=== PATIENT | female | born 1995 | race Caucasian/White ===

== ENCOUNTER 2017-11-26 15:31 | Emergency (ER) | payer OTHER, BC ==
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
[2017-11-26 16:12] LABS: Appearance HAZY (CLEAR); Bilirubin NEGATIVE (NEGATIVE); Blood 250 Ery/ul (0-5); Glucose NEGATIVE (NEGATIVE); Ketones NEGATIVE (NEGATIVE); Leukocyte Esterase TRACE (NEGATIVE); Nitrite NEGATIVE (NEGATIVE); Protein,Urine Dip NEGATIVE (Negative); Urobilinogen NORMAL mg/dL (0-1)
[2017-11-26 16:32] LABS: BASOPHIL % 0.2 % (0.0-0.4); Basophil (Absolute #) 0.02 (0-0.4); Eosinophil % 0.8 % (0.00-5.0); Eosinophil (Absolute #) 0.09 (0-0.5); Granulocyte Absolute (ANC) 7.75 (1.4-6.9); Granulocytes % 65.9 % (36.0-66.0); Hematocrit 45.7 % (35-47); Hemoglobin 15.4 gm/dl (12.0-16.0); Lymphocytes % 26.4 % (24.0-44.0); Mean Corpuscular Hemoglobin 30.7 pg (26-32); Mean Corpuscular Hgb Concent. 33.7 g/dl (32-36); Mean Platelet Volume 13.2 fl (6-9.5); Monocyte (Absolute #) 0.79 (0.0-1.3); Monocytes % 6.7 % (0.0-12.0); Platelet Count 169 K/mm3 (150-450); Red Blood Count 5.02 M/mm3 (4.1-5.4); Red Cell Distribution Width 12.7 % (11.5-14.0); White Blood Count 11.8 K/mm3 (4.0-10.5)
[2017-11-26 16:48] LABS: ALBUMIN 4.2 g/dL (3.5-5.0); ALKALINE PHOSPHATASE 84 U/L (38-126); AMYLASE 72 U/L (30-110); ANION GAP 14.7 MEQ/L (5-15); BLOOD UREA NITROGEN 14 mg/dL (7-17); CHLORIDE 105 mmol/L (98-107); Calcium 9.5 mg/dL (8.4-10.2); Carbon Dioxide 24 mmol/L (22-30); Creatinine 1 0.62 mg/dL (0.52-1.04); Glucose 92 mg/dL (74-106); LIPASE 43 U/L (23-300); Potassium 3.8 mmol/L (3.5-5.1); SGOT/AST 20 U/L (14-36); SGPT/ALT 22 U/L (0-35); SODIUM 140 mmol/L (137-145); Total Protein 7.4 g/dL (6.3-8.2)
[2017-11-26 16:54] LABS: Mucus MODERATE /HPF (NEGATIVE)
[2017-11-26 16:55] LABS: Bacteria MODERATE /HPF (NEGATIVE); Epithelial Cells MODERATE /HPF (FEW)
[2017-11-26] MEDS ORDERED: ROCEPHIN 1 Gm-D5w 50 ml Bag** 1 G/50 ML IVPB IV STA (17:23)
[2017-11-26 17:26] VITALS: O2SAT 99
[2017-11-26] MEDS ORDERED: ROCEPHIN 1 Gm-D5w 50 ml Bag** 1 G/50 ML IVPB IV ONE (17:30)
[2017-11-26 17:41] VITALS: BP 118/60; PULSE 90
== END 2017-11-26 17:40 | disposition home or self-care (01) ==
LOC: ED 15:31
DX: N39.0 Urinary tract infection, site not specified (principal)
CPT/HCPCS: 36000; 36415; 80053; 81000; 82150; 83690; 83735; 84703; 85025; 87086; 96365; 99283; 99284; J0696

== ENCOUNTER 2018-10-16 01:02 | Emergency (ER) | payer MEDICAID, OTHER ==
[2018-10-16 01:31] LABS: BASOPHIL % 0.1 % (0.0-0.4); Basophil (Absolute #) 0.02 (0-0.4); Eosinophil % 0.6 % (0.00-5.0); Eosinophil (Absolute #) 0.11 (0-0.5); Granulocytes % 70.4 % (36.0-66.0); Hematocrit 44.6 % (35-47); Hemoglobin 14.9 gm/dl (12.0-16.0); Lymphocyte (Absolute #) 3.76 (1.0-4.6); Lymphocytes % 21.9 % (24.0-44.0); Mean Cell Volume 93.7 fl (78-100); Mean Corpuscular Hemoglobin 31.3 pg (26-32); Mean Corpuscular Hgb Concent. 33.4 g/dl (32-36); Mean Platelet Volume 13.1 fl (6-9.5); Platelet Count 169 K/mm3 (150-450); Red Blood Count 4.76 M/mm3 (4.1-5.4); Red Cell Distribution Width 12.8 % (11.5-14.0); White Blood Count 17.2 K/mm3 (4.0-10.5)
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
[2018-10-16 01:47] LABS: Amphetamine,Urine NEGATIVE (NEGATIVE); Barbiturate,Urine NEGATIVE (NEGATIVE); Benzodiazepine,Urine NEGATIVE (NEGATIVE); Cocaine,Urine NEGATIVE (NEGATIVE); Methadone,Urine NEGATIVE (NEGATIVE); Opiate,Urine NEGATIVE (NEGATIVE); PCP,Urine NEGATIVE (NEGATIVE); THC,Urine NEGATIVE (NEGATIVE)
[2018-10-16 01:48] LABS: ALBUMIN 4.7 g/dL (3.5-5.0); ALKALINE PHOSPHATASE 96 U/L (38-126); ANION GAP 15.4 MEQ/L (5-15); BLOOD UREA NITROGEN 17 mg/dL (7-17); CHLORIDE 106 mmol/L (98-107); Calcium 9.4 mg/dL (8.4-10.2); Carbon Dioxide 23 mmol/L (22-30); Creatinine 1 0.62 mg/dL (0.52-1.04); Glucose 92 mg/dL (74-106); SGOT/AST 22 U/L (14-36); SGPT/ALT 22 U/L (0-35); SODIUM 141 mmol/L (137-145)
[2018-10-16 01:50] LABS: ACETAMINOPHEN < 10 ug/ml (10-30); ETHYL ALCOHOL < 10 mg/dL (0-10); SALICYLATE < 1.0 mg/dL (2-20)
[2018-10-16 01:52] LABS: Appearance SLIGHTLY CLOUDY (CLEAR); Bilirubin NEGATIVE (NEGATIVE); Blood LARGE Ery/ul (0-5); Epithelial Cells FEW /HPF (FEW); Glucose NEGATIVE (NEGATIVE); Ketones NEGATIVE (NEGATIVE); Leukocyte Esterase NEGATIVE (NEGATIVE); Mucus SLIGHT /HPF (NEGATIVE); Nitrite NEGATIVE (NEGATIVE); Protein,Urine Dip 30 (Negative); Specific Gravity 1.025 (1.005-1.025); Urobilinogen 2 mg/dL (0-1); WBC 0-2 /HPF (0-5)
[2018-10-16] MEDS ORDERED: Nicoderm CQ 21 MG TOP ONE (06:29)
[2018-10-16 10:11] VITALS: BP 124/80; PULSE 80
[2018-10-16 19:11] VITALS: O2SAT 97
== END 2018-10-16 10:36 ==
LOC: EEVIPCON 01:02 → ED 01:02
DX: R45.851 Suicidal ideations (principal)
CPT/HCPCS: 36415; 80053; 80307; 81001; 81025; 85025; 90791; 93005; 99285; G0481; Q3014; A9270-GY; G0480

== ENCOUNTER 2018-12-09 22:37 | Emergency (ER) | payer SELFPAY ==
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
[2018-12-10 01:03] VITALS: BP 98/52; PULSE 85; O2SAT 95
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
== END 2018-12-10 01:07 | disposition home or self-care (01) ==
LOC: ED 22:37
DX: S09.90XA Unspecified injury of head, initial encounter (principal); V43.52XA Car driver injured in collision with other type car in traffic accident, initial encounter
CPT/HCPCS: 70450; 99284

== ENCOUNTER → 2019-10-26 | Emergency (ER) | payer OTHER ==
--- NOTE | 2019-10-26 23:34 | ERPHSYRPT ---
- History of Present Illness Time Seen by Provider: 10/26/19 23:34 Allergies/Adverse Reactions: amoxicillin [From Augmentin] Allergy (Verified 12/09/18 23:28) clavulanic acid [From Augmentin] Allergy (Verified 12/09/18 23:28) Home Medications: No Reportable Medications [No Reported Medications] 12/09/18 [History] Hx Tetanus, Diphtheria Vaccination/Date Given: Yes Hx Influenza Vaccination/Date Given: Yes Hx Pneumococcal Vaccination/Date Given: No - Past Medical History Pertinent Past Medical History: No Neurological History: No Pertinent History ENT History: No Pertinent History Cardiac History: No Pertinent History Respiratory History: No Pertinent History Endocrine Medical History: No Pertinent History Musculoskeletal History: No Pertinent History GI Medical History: No Pertinent History History: No Pertinent History Psycho-Social History: No Pertinent History Female Reproductive Disorders: No Pertinent History - Past Surgical History Past Surgical History: No - Social History Smoking Status: Current every day smoker How long have you smoked: 5 years Exposure to second hand smoke: Yes Drug Use: none Patient Lives Alone: No - Departure Referrals: DEBBIE MCBRIDE DO [Primary Care Provider] -
== END ==
LOC: ED 22:58
DX: Z53.9 Procedure and treatment not carried out, unspecified reason (principal)
CPT/HCPCS: 99281

== ENCOUNTER 2019-10-27 11:51 | Emergency (ER) | payer OTHER ==
[2019-10-27 12:22] VITALS: O2SAT 98
--- NOTE | 2019-10-27 12:37 | ERPHSYRPT ---
- History of Present Illness Time Seen by Provider: 10/27/19 12:36 Source: patient Exam Limitations: no limitations Patient Subjective Stated Complaint: Vaginal bleeding during pregancy Triage Nursing Assessment: Patient ambulated back to ED and transferred self to bed. Patient A+O x3. Patient's skin pink, warm and dry. Patient complains of vaginal bleeding that started last night. Patient denies pain or discomfort. Patient's abdomen soft and round with BS X 4. Patient approx 8 weeks . Physician History: Vaginal bleeding for 1 day. patient is 8 weeks Timing/Duration: today Activites at Onset: none Pain Radiation: none Severity of Pain-Max: none Severity of Pain-Current: none Prior abdominal problems: none Sexual intercourse history: non-contributory Modifying Factors: Improves With: nothing Associated Symptoms: denies symptoms Allergies/Adverse Reactions: amoxicillin [From Augmentin] Allergy (Verified 10/27/19 12:10) clavulanic acid [From Augmentin] Allergy (Verified 10/27/19 12:10) Home Medications: Metformin HCl 500 mg [Glucophage 500 MG] 1 tab PO DAILY 10/27/19 [History] Hx Tetanus, Diphtheria Vaccination/Date Given: Yes Hx Influenza Vaccination/Date Given: No Hx Pneumococcal Vaccination/Date Given: No - Review of Systems Constitutional: No Fever, No Chills Eyes: No Symptoms Ears, Nose, & Throat: No Symptoms Respiratory: No Cough, No Dyspnea Cardiac: No Chest Pain, No Edema, No Syncope Abdominal/Gastrointestinal: No Abdominal Pain, No Nausea, No Vomiting, No Diarrhea Genitourinary Symptoms: No Dysuria Musculoskeletal: No Back Pain, No Neck Pain Skin: No Rash Neurological: No Dizziness, No Focal Weakness, No Sensory Changes Psychological: No Symptoms Endocrine: No Symptoms All Other Systems: Reviewed and Negative - Past Medical History Pertinent Past Medical History: No Neurological History: No Pertinent History ENT History: No Pertinent History Cardiac History: No Pertinent History Respiratory History: No Pertinent History Endocrine Medical History: No Pertinent History Musculoskeletal History: No Pertinent History GI Medical History: No Pertinent History History: No Pertinent History Psycho-Social History: No Pertinent History Female Reproductive Disorders: No Pertinent History - Past Surgical History Past Surgical History: No Neuro Surgical History: No Pertinent History Cardiac: No Pertinent History Respiratory: No Pertinent History Gastrointestinal: No Pertinent History Genitourinary: No Pertinent History Musculoskeletal: No Pertinent History Female Surgical History: No Pertinent History - Social History Smoking Status: Current every day smoker How long have you smoked: years Exposure to second hand smoke: Yes Drug Use: none Patient Lives Alone: No - Female History Hx Last Menstrual Period: 09/01/19 Hx Now: Yes Expected Date of Delivery: 06/07/20 - Nursing Vital Signs Nursing Vital Signs: Initial Vital Signs Temperature 98.0 F 10/27/19 12:12 Pulse Rate 109 H 10/27/19 12:12 Respiratory Rate 18 10/27/19 12:12 Blood Pressure 121/81 10/27/19 12:12 O2 Sat by Pulse Oximetry 98 10/27/19 12:12 Pain Scale Pain Intensity 0 - Physical Exam General Appearance: no apparent distress, alert Eye Exam: PERRL/EOMI, eyes nml inspection Ears, Nose, Throat Exam: normal ENT inspection, TMs normal, pharynx normal, moist mucous membranes Neck Exam: normal inspection, non-tender, supple, full range of motion Respiratory Exam: normal breath sounds, lungs clear, No respiratory distress Cardiovascular Exam: regular rate/rhythm, normal heart sounds, normal peripheral pulses Gastrointestinal/Abdomen Exam: soft, No tenderness, No mass Pelvic Exam: not done Back Exam: normal inspection, normal range of motion, No CVA tenderness, No vertebral tenderness Extremity Exam: normal inspection, normal range of motion, pelvis stable Neurologic Exam: alert, oriented x 3, cooperative, clubhouse attendant II-XII nml as tested, normal mood/affect, sensation nml, No motor deficits Skin Exam: normal color, warm, dry Lymphatic Exam: No adenopathy SpO2: 98 Ordered Tests: Active Orders 24 hr Category Date Time Status CBC W DIFF Stat Lab 10/27/19 12:36 Completed CMP Stat Lab 10/27/19 12:36 Completed HCG QUALITATIVE,SERUM Stat Lab 10/27/19 12:36 Completed HCG, Quantitative (Inhouse) Stat Lab 10/27/19 12:36 Received UA W/RFX UR CULTURE Stat Lab 10/27/19 12:32 Completed Lab/Rad Data: Laboratory Result Diagrams 10/27/19 12:36 10/27/19 12:36 Laboratory Results 10/27/19 10/27/19 10/27/19 Range/Units 12:36 12:36 12:36 WBC 11.8 H (4.0-10.5) K/mm3 RBC 4.68 (4.1-5.4) M/mm3 Hgb 14.7 (12.0-16.0) gm/dl Hct 44.4 (35-47) % MCV 94.9 (78-100) fl MCH 31.4 (26-32) pg MCHC 33.1 (32-36) g/dl RDW 12.9 (11.5-14.0) % Plt Count 167 (150-450) K/mm3 MPV 12.8 H (7.5-11.0) fl Gran % 64.9 (36.0-66.0) % Eos # (Auto) 0.11 (0-0.5) Absolute Lymphs (auto) 3.06 (1.0-4.6) Absolute Monos (auto) 0.94 (0.0-1.3) Lymphocytes % 25.9 (24.0-44.0) % Monocytes % 8.0 (0.0-12.0) % Eosinophils % 0.9 (0.00-5.0) % Basophils % 0.3 (0.0-0.4) % Absolute Granulocytes 7.68 H (1.4-6.9) Basophils # 0.03 (0-0.4) Sodium 139 (137-145) mmol/L Potassium 4.0 (3.5-5.1) mmol/L Chloride 105 (98-107) mmol/L Carbon Dioxide 27 (22-30) mmol/L Anion Gap 11.8 (5-15) MEQ/L BUN 10 (7-17) mg/dL Creatinine 0.52 (0.52-1.04) mg/dL Estimated GFR > 60.0 ML/MIN Glucose 93 (74-106) mg/dL Calcium 9.4 (8.4-10.2) mg/dL Total Bilirubin 0.40 (0.2-1.3) mg/dL AST 24 (14-36) U/L ALT 23 (0-35) U/L Alkaline Phosphatase 66 (38-126) U/L Serum Total Protein 7.5 (6.3-8.2) g/dL Albumin 4.2 (3.5-5.0) g/dL Serum , Qual POSITIVE (Negative) Urine Color (YELLOW) Urine Appearance (CLEAR) Urine pH (5-6) Ur Specific [place] (1.005-1.025) Urine Protein (Negative) Urine Ketones (NEGATIVE) Urine Blood (0-5) Leonel/ul Urine Nitrite (NEGATIVE) Urine Bilirubin (NEGATIVE) Urine Urobilinogen (0-1) mg/dL Ur Leukocyte Esterase (NEGATIVE) Urine WBC (Auto) (0-5) /HPF Urine RBC (Auto) (0-2) /HPF U Epithel Cells (Auto) (FEW) /HPF Urine Bacteria (Auto) (NEGATIVE) /HPF Unidentified Crystals (NEGATIVE) /HPF Urine Mucus (Auto) (NEGATIVE) /HPF Urine Culture Reflexed (NO) Urine Glucose (NEGATIVE) mg/dL 10/27/19 Range/Units 12:32 WBC (4.0-10.5) K/mm3 RBC (4.1-5.4) M/mm3 Hgb (12.0-16.0) gm/dl Hct (35-47) % MCV (78-100) fl MCH (26-32) pg MCHC (32-36) g/dl RDW (11.5-14.0) % Plt Count (150-450) K/mm3 MPV (7.5-11.0) fl Gran % (36.0-66.0) % Eos # (Auto) (0-0.5) Absolute Lymphs (auto) (1.0-4.6) Absolute Monos (auto) (0.0-1.3) Lymphocytes % (24.0-44.0) % Monocytes % (0.0-12.0) % Eosinophils % (0.00-5.0) % Basophils % (0.0-0.4) % Absolute Granulocytes (1.4-6.9) Basophils # (0-0.4) Sodium (137-145) mmol/L Potassium (3.5-5.1) mmol/L Chloride (98-107) mmol/L Carbon Dioxide (22-30) mmol/L Anion Gap (5-15) MEQ/L BUN (7-17) mg/dL Creatinine (0.52-1.04) mg/dL Estimated GFR ML/MIN Glucose (74-106) mg/dL Calcium (8.4-10.2) mg/dL Total Bilirubin (0.2-1.3) mg/dL AST (14-36) U/L ALT (0-35) U/L Alkaline Phosphatase (38-126) U/L Serum Total Protein (6.3-8.2) g/dL Albumin (3.5-5.0) g/dL Serum , Qual (Negative) Urine Color YELLOW (YELLOW) Urine Appearance SLIGHTLY CLOUDY (CLEAR) Urine pH 7.0 (5-6) Ur Specific [place] 1.019 (1.005-1.025) Urine Protein NEGATIVE (Negative) Urine Ketones NEGATIVE (NEGATIVE) Urine Blood MODERATE (0-5) Leonel/ul Urine Nitrite NEGATIVE (NEGATIVE) Urine Bilirubin NEGATIVE (NEGATIVE) Urine Urobilinogen NEGATIVE (0-1) mg/dL Ur Leukocyte Esterase NEGATIVE (NEGATIVE) Urine WBC (Auto) 0-2 (0-5) /HPF Urine RBC (Auto) 3-5 (0-2) /HPF U Epithel Cells (Auto) RARE (FEW) /HPF Urine Bacteria (Auto) NONE (NEGATIVE) /HPF Unidentified Crystals 2-5 (NEGATIVE) /HPF Urine Mucus (Auto) SLIGHT (NEGATIVE) /HPF Urine Culture Reflexed NO (NO) Urine Glucose NEGATIVE (NEGATIVE) mg/dL - Progress Progress: improved Air Movement: good Blood Culture(s) Obtained: No Antibiotics given: No Counseled pt/family regarding: lab results, diagnosis, need for follow-up - Departure Departure Disposition: Home Clinical Impression: Vaginal bleeding affecting early Condition: Stable Critical Care Time: No Referrals: DEBBIE MCBRIDE DO [Primary Care Provider] - Instructions: Bleeding With (DC), How to Adapt to Physical Changes During Additional Instructions: VELASCOCHI LEONARD was seen on 10/27/19 n the Emergency Room. At that time you were treated for an emergent condition, during your visit Laboratory, Radiology and/or other procedures may have been ordered. It is very important that you follow-up with your Primary Care Physician DEBBIE MCBRIDE DO within the next 24- 48 hours to review your Emergency Room visit and the final results of testing that was ordered. Some test results such as Urine Cultures, Blood Cultures, and other cultures if ordered will not be finalized for 24-48 hours. If you do not have a Primary Care Provider please call the medical records department at [phone] ext [phone] to obtain a copy of your results or you may sign into our patient portal to obtain these results by visiting us @ [email or web address] and completing the following steps: 1. Click on the Patient Portal link 2. Click the Patient Self Enrollment Link to complete the enrollment form and entering your 3. Once the enrollment form is completed you will receive an email with a temporary ID and password at the email address you provided. 4. Next choose a user name and password. Your user name must be at least 4 characters long and your password must be at least 4 characters long. 5. Choose a security question from the list and provide your answer to the question. If you already have signed into the Health Portal you may access your Health Care Information 07/03 by the following steps: 1. Login to our website @ [email or web address] 2. Enter your original user name and password. FAQS The [facility] Portal is an online tool that contains your Lab Results, Radiology Reports, Visit History, Discharge Instructions and Health Summary Lab and Radiology Results will not be available for 72 hours on the portal. The Portal is a secure site, passwords are encryted and URLs are re-written so they cannot be copied and pasted. You and authorized family members are the only ones who can access your Portal. Also there is a timeout feature that protects your information if you leave the Portal page open. If you have technical difficulty please use the Contact Us link on the page this will allow you to submit any questions you have regarding the Portal or you may contact the Medical Record Department at [phone]. Discharge/Care Plan CHI VELASCO was seen on 10/27/19 in the Emergency Room. The patient was counseled regarding Diagnosis,Lab results, Imaging studies, need for follow up and when to return to the Emergency Room. Prescriptions given: Discharge Note I have spoken with the patient and/or caregivers. I have explained the patient' s condition, diagnosis and treatment plan based on the information available to me at this time. I have answered the patient's and/or caregiver's questions and addressed any concerns. The patient and/or caregivers have as good understanding of the patient's diagnosis, condition and treatment plan as can be expected at this point. The vital signs have been stable. The patient's condition is stable and appropriate for discharge from the emergency department. The patient will pursue further outpatient evaluation with the primary care physician or other designated or consulting physician as outlined in the discharge instructions. The patient and/or caregivers are agreeable to this plan of care and follow-up instructions have been explained in detail. The patient and/or caregivers have received these instruction. The patient/and or caregivers are aware that any significant change in condition or worsening of symptoms should prompt an immediate return to this or the closest emergency department or call 911.
[2019-10-27 12:38] LABS: Absolute Neutrophil Ct (ANC) 7.68 (1.4-6.9); BASOPHIL % 0.3 % (0.0-0.4); Basophil (Absolute #) 0.03 (0-0.4); Eosinophil % 0.9 % (0.00-5.0); Eosinophil (Absolute #) 0.11 (0-0.5); Hematocrit 44.4 % (35-47); Hemoglobin 14.7 gm/dl (12.0-16.0); Lymphocyte (Absolute #) 3.06 (1.0-4.6); Lymphocytes % 25.9 % (24.0-44.0); Mean Cell Volume 94.9 fl (78-100); Mean Corpuscular Hemoglobin 31.4 pg (26-32); Mean Corpuscular Hgb Concent. 33.1 g/dl (32-36); Mean Platelet Volume 12.8 fl (7.5-11.0); Monocyte (Absolute #) 0.94 (0.0-1.3); Neutrophil % 64.9 % (36.0-66.0); Platelet Count 167 K/mm3 (150-450); Red Blood Count 4.68 M/mm3 (4.1-5.4); Red Cell Distribution Width 12.9 % (11.5-14.0); White Blood Count 11.8 K/mm3 (4.0-10.5)
[2019-10-27 12:49] LABS: ALBUMIN 4.2 g/dL (3.5-5.0); ALKALINE PHOSPHATASE 66 U/L (38-126); ANION GAP 11.8 MEQ/L (5-15); BLOOD UREA NITROGEN 10 mg/dL (7-17); CHLORIDE 105 mmol/L (98-107); Calcium 9.4 mg/dL (8.4-10.2); Carbon Dioxide 27 mmol/L (22-30); Creatinine 1 0.52 mg/dL (0.52-1.04); Glucose 93 mg/dL (74-106); SGOT/AST 24 U/L (14-36); SGPT/ALT 23 U/L (0-35); SODIUM 139 mmol/L (137-145); Total Protein 7.5 g/dL (6.3-8.2)
[2019-10-27 12:59] LABS: Appearance SLIGHTLY CLOUDY (CLEAR); Bilirubin NEGATIVE (NEGATIVE); Blood MODERATE Ery/ul (0-5); Epithelial Cells RARE /HPF (FEW); Glucose NEGATIVE (NEGATIVE); Ketones NEGATIVE (NEGATIVE); Leukocyte Esterase NEGATIVE (NEGATIVE); Mucus SLIGHT /HPF (NEGATIVE); Nitrite NEGATIVE (NEGATIVE); Protein,Urine Dip NEGATIVE (Negative); Specific Gravity 1.019 (1.005-1.025); Urobilinogen NEGATIVE mg/dL (0-1); WBC 0-2 /HPF (0-5)
[2019-10-27 13:32] VITALS: BP 90/62; PULSE 90
== END 2019-10-27 13:35 | disposition home or self-care (01) ==
LOC: ED 11:51
DX: O20.9 Hemorrhage in early pregnancy, unspecified (principal)
CPT/HCPCS: 36415; 80053; 81001; 81025; 84702; 85025; 99283

== ENCOUNTER 2020-01-02 14:04 | Emergency (ER) | payer OTHER ==
--- NOTE | 2020-01-02 14:43 | ERPHSYRPT ---
- History of Present Illness Time Seen by Provider: 01/02/20 14:07 Source: patient Exam Limitations: no limitations Patient Subjective Stated Complaint: pt here for right hand pain today after getting mad and punching a wall Triage Nursing Assessment: walked in crying co pain to right hand, resp easy, skin w/d/p.pt has swelling to right hand, hand placed on pillow and ice. emtional support given, Physician History: `24 yo wf w R hand vs wall. Pt is R handed and denies other/previous injury. Pain is 10 on scale. She is 17wks . Vaginal bleeding/Abdominal pain denied. Occurred: just prior to arrival Method of Injury: direct blow Quality: constant Severity of Pain-Max: moderate Severity of Pain-Current: moderate Extremities Pain Location: hand: right Modifying Factors: Improves With: movement Associated Symptoms: none Allergies/Adverse Reactions: amoxicillin [From Augmentin] Allergy (Verified 01/02/20 14:30) clavulanic acid [From Augmentin] Allergy (Verified 01/02/20 14:30) Home Medications: No Reportable Medications [No Reported Medications] 01/02/20 [History] Hx Tetanus, Diphtheria Vaccination/Date Given: No Hx Influenza Vaccination/Date Given: No Hx Pneumococcal Vaccination/Date Given: No Immunizations Up to Date: Yes Travel Risk - International Travel Have you traveled outside of the country in past 3 weeks: No Have you or anyone close to you been diagnosed with or: No Do your reside in a community with a known COVID-19 case?: Yes If Yes where:: [facility] - Coronavirus Screening Has patient experienced Coronavirus symptoms: No - Review of Systems Constitutional: No Fever, No Chills Eyes: No Symptoms Ears, Nose, & Throat: No Symptoms Respiratory: No Cough, No Dyspnea Cardiac: No Chest Pain, No Edema, No Syncope Abdominal/Gastrointestinal: No Abdominal Pain, No Nausea, No Vomiting, No Diarrhea Genitourinary Symptoms: No Dysuria Musculoskeletal: No Back Pain, No Neck Pain Skin: No Rash Neurological: No Dizziness, No Focal Weakness, No Sensory Changes Psychological: No Symptoms Endocrine: No Symptoms Hematologic/Lymphatic: No Symptoms Immunological/Allergic: No Symptoms - Past Medical History Pertinent Past Medical History: No Neurological History: No Pertinent History ENT History: No Pertinent History Cardiac History: No Pertinent History Respiratory History: No Pertinent History Endocrine Medical History: No Pertinent History Musculoskeletal History: No Pertinent History GI Medical History: No Pertinent History History: No Pertinent History Psycho-Social History: No Pertinent History Female Reproductive Disorders: No Pertinent History - Past Surgical History Past Surgical History: No Neuro Surgical History: No Pertinent History Cardiac: No Pertinent History Respiratory: No Pertinent History Gastrointestinal: No Pertinent History Genitourinary: No Pertinent History Musculoskeletal: No Pertinent History Female Surgical History: No Pertinent History - Social History Smoking Status: Current every day smoker How long have you smoked: years Exposure to second hand smoke: Yes Drug Use: none Patient Lives Alone: No Significant Family History: no pertinent family hx - Female History Hx Last Menstrual Period: aug 2019 Hx Now: Yes Expected Date of Delivery: 06/13/20 - Nursing Vital Signs Nursing Vital Signs: Initial Vital Signs Temperature 98.1 F 01/02/20 14:11 Pulse Rate 120 H 01/02/20 14:11 Respiratory Rate 18 01/02/20 14:11 Blood Pressure 122/68 01/02/20 14:11 O2 Sat by Pulse Oximetry 97 01/02/20 14:11 Pain Scale Pain Intensity 10 - Physical Exam General Appearance: no apparent distress Eyes, Ears, Nose, Throat Exam: normal ENT inspection Neck Exam: normal inspection Cardiovascular/Respiratory Exam: chest non-tender, normal breath sounds, regular rate/rhythm Abdominal Exam: non-tender, soft Back Exam: normal inspection, normal range of motion, No CVA tenderness Shoulder Exam: normal inspection, non-tender, no evidence of injury, normal ROM Elbow/Forearm Exam: normal inspection, non-tender, no evidence of injury, normal ROM Wrist Exam: normal inspection, non-tender, no evidence of injury, normal ROM Hand Exam: soft tissue tenderness (Edema and ttp over 4th/5th metacarpals/Good radial pulse, distal sensation, and capillary return), swelling Neuro/Tendon Exam: normal sensation Mental Status Exam: alert, oriented x 3, cooperative Skin Exam: normal color, warm, dry SpO2 Interpretation: normal SpO2: 97 O2 Delivery: Room Air - Course Nursing assessment & vital signs reviewed: Yes - Radiology Exams Hand X-ray Interpretation: Interpreted by me, No Fracture Ordered Tests: Active Orders 24 hr Category Date Time Status HAND (MINIMUM 3 VIEWS) Stat Exams 01/02/20 Ordered - Progress Progress Note: 01/02/20 14:43 Messi wrap R hand per nurse/NVI - Departure Departure Disposition: Home Clinical Impression: Hand contusion Qualifiers: Encounter type: initial encounter Laterality: right Qualified Code(s): S60.221A - Contusion of right hand, initial encounter Condition: Stable Critical Care Time: No Referrals: DEBBIE MCBRIDE DO [Primary Care Provider] - Additional Instructions: Ice for 12-24 hours Tylenol for pain Messi wrap for 3-4 days Follow up with your family MD for continued pain
[2020-01-02 14:53] VITALS: BP 103/67; PULSE 86; O2SAT 98
--- NOTE | 2020-01-02 20:53 | XRAY ---
Exam: 3 view right hand series from 01/02/2020. Comparison: None. Indication: 24-year-old female punched a wall about 1:30 today. Findings: AP, oblique, and lateral radiographs of the right hand were obtained. The patient's lower abdomen and pelvis were shielded, as she is . A consent form was signed by the patient prior to the radiographs being performed. I note moderate soft tissue swelling overlying the dorsal ulnar aspect of the metacarpal region of the right hand. However, no underlying fracture or dislocation is seen. There is bone overlap of the fingers on the lateral radiograph. The joint spaces appear unremarkable. No radiopaque soft tissue foreign body is seen. Impression: 1. Moderate soft tissue swelling overlying the posterior ulnar aspect of the metacarpal region of the right hand without evidence of underlying fracture/dislocation or radiopaque soft tissue foreign body.
== END 2020-01-02 14:54 | disposition home or self-care (01) ==
LOC: ED 14:04
DX: S60.221A Contusion of right hand, initial encounter (principal); M79.641 Pain in right hand; M79.89 Other specified soft tissue disorders; W22.09XA Striking against other stationary object, initial encounter; Y93.89 Activity, other specified; Y92.9 Unspecified place or not applicable; Z3A.17 17 weeks gestation of pregnancy
CPT/HCPCS: 73130; 99283

== ENCOUNTER 2020-04-12 20:34 | Observation (INO) | payer OTHER ==
[2020-04-12 21:21] LABS: Appearance CLOUDY (CLEAR); Bacteria MODERATE /HPF (NEGATIVE); Bilirubin NEGATIVE (NEGATIVE); Blood NEGATIVE Ery/ul (0-5); Epithelial Cells RARE /HPF (FEW); Glucose NEGATIVE (NEGATIVE); Ketones NEGATIVE (NEGATIVE); Leukocyte Esterase NEGATIVE (NEGATIVE); Mucus SLIGHT /HPF (NEGATIVE); Nitrite NEGATIVE (NEGATIVE); Protein,Urine Dip 30 (Negative); Specific Gravity 1.025 (1.005-1.025); Urobilinogen 2 mg/dL (0-1)
[2020-04-12 21:31] LABS: Amphetamine,Urine NEGATIVE (NEGATIVE); Barbiturate,Urine NEGATIVE (NEGATIVE); Benzodiazepine,Urine NEGATIVE (NEGATIVE); Cocaine,Urine NEGATIVE (NEGATIVE); Methadone,Urine NEGATIVE (NEGATIVE); Opiate,Urine NEGATIVE (NEGATIVE); PCP,Urine NEGATIVE (NEGATIVE); THC,Urine NEGATIVE (NEGATIVE)
[2020-04-12 23:26] VITALS: BP 114/54; PULSE 99; O2SAT 94
== END 2020-04-12 22:45 | disposition home or self-care (01) ==
LOC: OB 20:34
PROVIDERS: ADMIT Obstetrics & Gynecology; ATTEND Obstetrics & Gynecology
DX: Z34.03 Encounter for supervision of normal first pregnancy, third trimester (principal)
CPT/HCPCS: 80307; 81001; 87086; G0378

== ENCOUNTER 2020-05-24 19:08 | Observation (INO) | payer OTHER ==
[2020-05-24 19:44] LABS: Appearance SLIGHTLY CLOUDY (CLEAR); Bacteria MODERATE /HPF (NEGATIVE); Bilirubin NEGATIVE (NEGATIVE); Blood NEGATIVE Ery/ul (0-5); Epithelial Cells RARE /HPF (FEW); Glucose NEGATIVE (NEGATIVE); Ketones NEGATIVE (NEGATIVE); Leukocyte Esterase SMALL (NEGATIVE); Mucus SLIGHT /HPF (NEGATIVE); Nitrite NEGATIVE (NEGATIVE); Protein,Urine Dip 30 (Negative); RBC 0-2 /HPF (0-2); Specific Gravity 1.023 (1.005-1.025); Urobilinogen 2 mg/dL (0-1)
[2020-05-24 23:54] VITALS: BP 119/67; PULSE 96; O2SAT 95
== END 2020-05-24 21:40 | disposition home or self-care (01) ==
LOC: OB 19:08
PROVIDERS: ADMIT Obstetrics & Gynecology; ATTEND Obstetrics & Gynecology
DX: Z34.03 Encounter for supervision of normal first pregnancy, third trimester (principal); Z3A.37 37 weeks gestation of pregnancy
CPT/HCPCS: 81001; 87086; G0378

== ENCOUNTER 2020-05-30 12:16 | Observation (INO) | payer OTHER ==
[2020-05-30] MEDS ORDERED: BRETHINE 1 MG/ML SQ ONE (13:20)
[2020-05-30 13:27] LABS: Amphetamine,Urine NEGATIVE (NEGATIVE); Barbiturate,Urine NEGATIVE (NEGATIVE); Benzodiazepine,Urine NEGATIVE (NEGATIVE); Cocaine,Urine NEGATIVE (NEGATIVE); Methadone,Urine NEGATIVE (NEGATIVE); Opiate,Urine NEGATIVE (NEGATIVE); PCP,Urine NEGATIVE (NEGATIVE); THC,Urine NEGATIVE (NEGATIVE)
[2020-05-30] MEDS ORDERED: Lactated Ringers 1,000 ML IV SCH (13:30)
[2020-05-30 13:37] LABS: BASOPHIL % 0.2 % (0.0-0.4); Basophil (Absolute #) 0.02 (0-0.4); Eosinophil % 0.3 % (0.00-5.0); Eosinophil (Absolute #) 0.03 (0-0.5); Hematocrit 41.5 % (35-47); Hemoglobin 13.5 gm/dl (12.0-16.0); Lymphocyte (Absolute #) 2.03 (1.0-4.6); Lymphocytes % 17.2 % (24.0-44.0); Mean Corpuscular Hemoglobin 30.9 pg (26-32); Mean Corpuscular Hgb Concent. 32.5 g/dl (32-36); Mean Platelet Volume 13.8 fl (7.5-11.0); Monocyte (Absolute #) 0.79 (0.0-1.3); Monocytes % 6.7 % (0.0-12.0); Neutrophil % 75.6 % (36.0-66.0); Platelet Count 144 K/mm3 (150-450); Red Blood Count 4.37 M/mm3 (4.1-5.4); Red Cell Distribution Width 13.8 % (11.5-14.0); White Blood Count 11.8 K/mm3 (4.0-10.5)
[2020-05-30 14:17] LABS: ABO TYPING O; Antibody Screen NEGATIVE (NEGATIVE); RH TYPING POSITIVE
[2020-05-30 15:56] VITALS: BP 114/73; PULSE 109
== END 2020-05-30 15:45 | disposition home or self-care (01) ==
LOC: OB 12:16
PROVIDERS: ADMIT Obstetrics & Gynecology; ATTEND Obstetrics & Gynecology
DX: Z34.03 Encounter for supervision of normal first pregnancy, third trimester (principal); Z3A.38 38 weeks gestation of pregnancy
CPT/HCPCS: 36415; 80307; 85025; 86850; 86900; 86901; G0378

== ENCOUNTER 2020-06-03 08:26 | Observation (INO) | payer BC, OTHER ==
[2020-06-03 10:23] LABS: Absolute Neutrophil Ct (ANC) 9.99 (1.4-6.9); Basophil (Absolute #) 0 (0-0.4); Eosinophil % 0.5 % (0.00-5.0); Eosinophil (Absolute #) 0.06 (0-0.5); Hematocrit 45.3 % (35-47); Hemoglobin 14.8 gm/dl (12.0-16.0); Lymphocyte (Absolute #) 1.72 (1.0-4.6); Lymphocytes % 13.6 % (24.0-44.0); Mean Cell Volume 95.2 fl (78-100); Mean Corpuscular Hemoglobin 31.1 pg (26-32); Mean Corpuscular Hgb Concent. 32.7 g/dl (32-36); Mean Platelet Volume 14.3 fl (7.5-11.0); Monocyte (Absolute #) 0.84 (0.0-1.3); Monocytes % 6.7 % (0.0-12.0); Neutrophil % 79.2 % (36.0-66.0); Platelet Count 148 K/mm3 (150-450); Red Blood Count 4.76 M/mm3 (4.1-5.4); Red Cell Distribution Width 14.1 % (11.5-14.0); White Blood Count 12.6 K/mm3 (4.0-10.5)
[2020-06-03 10:27] LABS: ALBUMIN 3.8 g/dL (3.5-5.0); ALKALINE PHOSPHATASE 171 U/L (38-126); ANION GAP 9.8 MEQ/L (5-15); BLOOD UREA NITROGEN 9 mg/dL (7-17); CHLORIDE 105 mmol/L (98-107); Calcium 10.1 mg/dL (8.4-10.2); Carbon Dioxide 23 mmol/L (22-30); EST GLOMERULAR FILTRATION RATE > 60.0 ML/MIN; Glucose 75 mg/dL (74-106); Potassium 4.6 mmol/L (3.5-5.1); SGOT/AST 20 U/L (14-36); SODIUM 134 mmol/L (137-145); Total Protein 7.4 g/dL (6.3-8.2)
[2020-06-03 10:28] LABS: SGPT/ALT 11 U/L (0-35)
[2020-06-03 10:43] VITALS: BP 134/77; PULSE 100
[2020-06-03 10:51] LABS: Appearance SLIGHTLY CLOUDY (CLEAR); Bacteria FEW /HPF (NEGATIVE); Bilirubin NEGATIVE (NEGATIVE); Blood NEGATIVE Ery/ul (0-5); Epithelial Cells RARE /HPF (FEW); Glucose NEGATIVE (NEGATIVE); Ketones NEGATIVE (NEGATIVE); Leukocyte Esterase SMALL (NEGATIVE); Mucus MODERATE /HPF (NEGATIVE); Nitrite NEGATIVE (NEGATIVE); Protein,Urine Dip 30 (Negative); Specific Gravity 1.025 (1.005-1.025); Urobilinogen NEGATIVE mg/dL (0-1)
[2020-06-03 10:56] LABS: Creatinine, Urine Random 190.2 mg/dl (30-125)
== END 2020-06-03 10:10 | disposition home or self-care (01) ==
LOC: OB 08:26
PROVIDERS: ADMIT Obstetrics & Gynecology; ATTEND Obstetrics & Gynecology
DX: O99.113 Other diseases of the blood and blood-forming organs and certain disorders involving the immune mechanism complicating pregnancy, third trimester (principal); D69.6 Thrombocytopenia, unspecified; Z3A.38 38 weeks gestation of pregnancy
CPT/HCPCS: 36415; 59025; 80053; 81001; 81050; 82570; 84156; 84550; 85025; 87086; G0378

== ENCOUNTER 2020-06-06 00:16 | Inpatient (IN) | payer OTHER ==
[2020-06-06] MEDS ORDERED: SOD CITRATE-CITRIC ACID SOLN PO ONE (04:23)
[2020-06-06] MEDS ORDERED: NORCO 5/325 MG PO PRN (04:27)
[2020-06-06] MEDS ORDERED: Dermoplast Spray TP PRN (04:27)
[2020-06-06] MEDS ORDERED: CORTISONE 1% CREAM TP PRN (04:27)
[2020-06-06] MEDS ORDERED: LANSINOH 40 GM TOP PRN (04:27)
[2020-06-06] MEDS ORDERED: Anucort-HC SUPPOSITORY PR PRN (04:27)
[2020-06-06] MEDS ORDERED: TUCKS TP PRN (04:27)
[2020-06-06] MEDS ORDERED: Lactated Ringers 1,000 ML IV SCH ×2 (04:30)
[2020-06-06] MEDS ORDERED: Pepcid 20 MG VIAL IV SCH (04:30)
[2020-06-06] MEDS ORDERED: Reglan 10 MG/2 ML IV SCH (04:30)
[2020-06-06] MEDS ORDERED: CLINDAMYCIN-D5W 900 MG/50 ML*** 900 MG/50 ML BAG IV SCH (04:30)
[2020-06-06 05:01] LABS: Hematocrit 39.4 % (35-47); Mean Cell Volume 95.4 fl (78-100); Mean Corpuscular Hemoglobin 31.5 pg (26-32); Mean Platelet Volume 13.9 fl (7.5-11.0); Platelet Count 126 K/mm3 (150-450); Red Blood Count 4.13 M/mm3 (4.1-5.4); Red Cell Distribution Width 13.6 % (11.5-14.0); White Blood Count 13.5 K/mm3 (4.0-10.5)
[2020-06-06 05:10] LABS: INR 0.98 (0.8-3.0); PROTIME 11.1 SECONDS (9.95-12.35)
[2020-06-06 05:12] LABS: PTT 25.5 SECONDS (25.3-37.0)
[2020-06-06 05:31] LABS: Appearance CLEAR (CLEAR); Bacteria RARE /HPF (NEGATIVE); Bilirubin NEGATIVE (NEGATIVE); Blood NEGATIVE Ery/ul (0-5); Epithelial Cells RARE /HPF (FEW); Glucose NEGATIVE (NEGATIVE); Ketones NEGATIVE (NEGATIVE); Leukocyte Esterase NEGATIVE (NEGATIVE); Mucus SLIGHT /HPF (NEGATIVE); Nitrite NEGATIVE (NEGATIVE); Protein,Urine Dip NEGATIVE (Negative); Urobilinogen NEGATIVE mg/dL (0-1); WBC 0-2 /HPF (0-5)
[2020-06-06 05:38] LABS: Amphetamine,Urine NEGATIVE (NEGATIVE); Barbiturate,Urine NEGATIVE (NEGATIVE); Benzodiazepine,Urine NEGATIVE (NEGATIVE); Cocaine,Urine NEGATIVE (NEGATIVE); Methadone,Urine NEGATIVE (NEGATIVE); Opiate,Urine NEGATIVE (NEGATIVE); PCP,Urine NEGATIVE (NEGATIVE); THC,Urine NEGATIVE (NEGATIVE)
[2020-06-06 05:41] LABS: ABO TYPING O; Antibody Screen NEGATIVE (NEGATIVE); RH TYPING POSITIVE
[2020-06-06] MEDS ORDERED: Pitocin 10 UNITS/ML ONE (06:36)
[2020-06-06] MEDS ORDERED: Astramorph-Pf 5 MG/10 ML ONE (06:36)
[2020-06-06] MEDS ORDERED: PHENYLEPHRINE HCL ONE (06:37)
[2020-06-06] MEDS ORDERED: Naropin 0.5% 30 ML VIAL ONE (07:23)
[2020-06-06] MEDS ORDERED: EPINEPHRINE 1MG/ML AMP ONE (07:24)
[2020-06-06] MEDS ORDERED: Decadron 4 MG INJ ONE (07:28)
[2020-06-06] MEDS ORDERED: Zofran 4 MG/2 ML VIAL ONE (07:28)
[2020-06-06] MEDS ORDERED: Lactated Ringers 1,000 ML IV ONE (07:42)
[2020-06-06] MEDS ORDERED: TORAdol 30 mg Injection ONE (08:02)
[2020-06-06] MEDS ORDERED: CLARITIN 10 MG PO PRN (09:00)
[2020-06-06] MEDS ORDERED: Nubain 10 MG/ML IV PRN (09:00)
[2020-06-06] MEDS ORDERED: Narcan 0.4 MG/ML IV PRN (09:00)
[2020-06-06] MEDS ORDERED: DEMEROL 50 MG IV PRN (09:00)
[2020-06-06] MEDS ORDERED: BENADRYL 50 MG/ML IV PRN (09:00)
[2020-06-06] MEDS ORDERED: Zofran 4 MG/2 ML VIAL IV PRN (09:00)
[2020-06-06] MEDS ORDERED: PERCOCET TABLET 5/325MG PO PRN (09:00)
[2020-06-06] MEDS ORDERED: HOLD NARCOTIC ANALGESICS AND SEDATIVES X24 HR MC PRN (09:00)
[2020-06-06] MEDS ORDERED: MORPHINE SULFATE 2 MG INJ IV PRN (09:00)
[2020-06-06] MEDS: Dextrose 5%-Lr IV Solution 1000 ML 1,000 ML IV SCH ×2 (09:09→17:22)
[2020-06-06] MEDS: NICODERM CQ 14 MG TOP SCH (14:28)
[2020-06-06 15:30] LABS: Appearance CLEAR (CLEAR); Bilirubin NEGATIVE (NEGATIVE); Blood NEGATIVE Ery/ul (0-5); Epithelial Cells RARE /HPF (FEW); Glucose NEGATIVE (NEGATIVE); Ketones NEGATIVE (NEGATIVE); Leukocyte Esterase NEGATIVE (NEGATIVE); Nitrite NEGATIVE (NEGATIVE); Non-Squamous Epithelial Cells RARE /HPF (FEW); Protein,Urine Dip NEGATIVE (Negative); Specific Gravity 1.005 (1.005-1.025); Urobilinogen NEGATIVE mg/dL (0-1)
[2020-06-06] MEDS: MOTRIN 400 MG PO PRN (19:40)
[2020-06-06] MEDS: Colace 100 MG PO SCH ×2 (22:10→22:11)
[2020-06-06] MEDS: FERREX 150 PO SCH (22:11)
[2020-06-06] MEDS: Mylicon 80MG PO PRN (22:11)
[2020-06-07] MEDS: TYLENOL EXTRA STRENGTH 500 MG PO PRN ×3 (00:11→17:59)
[2020-06-07] MEDS ORDERED: Ambien 10 MG PO PRN (04:27)
[2020-06-07] MEDS: MOTRIN 400 MG PO PRN ×2 (05:14→17:59)
[2020-06-07 06:16] LABS: Absolute Neutrophil Ct (ANC) 16.49 (1.4-6.9); Basophil (Absolute #) 0.01 (0-0.4); Eosinophil (Absolute #) 0.01 (0-0.5); Hematocrit 38.6 % (35-47); Hemoglobin 12.5 gm/dl (12.0-16.0); Lymphocyte (Absolute #) 3.04 (1.0-4.6); Lymphocytes % 14.4 % (24.0-44.0); Mean Cell Volume 97.2 fl (78-100); Mean Corpuscular Hemoglobin 31.5 pg (26-32); Mean Corpuscular Hgb Concent. 32.4 g/dl (32-36); Mean Platelet Volume 14.5 fl (7.5-11.0); Monocyte (Absolute #) 1.56 (0.0-1.3); Monocytes % 7.4 % (0.0-12.0); Neutrophil % 78.2 % (36.0-66.0); Platelet Count 130 K/mm3 (150-450); Red Blood Count 3.97 M/mm3 (4.1-5.4); Red Cell Distribution Width 13.7 % (11.5-14.0); White Blood Count 21.1 K/mm3 (4.0-10.5)
[2020-06-07] MEDS: FERREX 150 PO SCH (09:32)
[2020-06-07] MEDS: Colace 100 MG PO SCH ×2 (09:32→22:02)
[2020-06-07] MEDS ORDERED: Adacel Vial IM ONE (10:00)
[2020-06-07] MEDS: NICODERM CQ 14 MG TOP SCH (10:06)
[2020-06-07] MEDS: Mylicon 80MG PO PRN (20:09)
[2020-06-07] MEDS: NORCO 5/325 MG PO PRN (22:01)
[2020-06-08] MEDS: NORCO 5/325 MG PO PRN ×2 (02:03→06:09)
[2020-06-08] MEDS: MOTRIN 400 MG PO PRN ×2 (06:09)
[2020-06-08 08:32] VITALS: BP 112/64; PULSE 100; O2SAT 94
--- NOTE | 2020-06-08 10:08 | PCM.DCORD ---
- Discharge Discharge Date: 06/08/20 Prescriptions: No Action Vits W-Ca,Fe,FA(<1Mg) [] 1 tab PO DAILY Follow up with: DEBBIE MCBRIDE DO [Primary Care Provider] - Call for Appointment (should fu in 2 wks for postop incision check) Forms: OB Discharge Instructions
--- NOTE | 2020-06-08 10:09 | PCM.NOTE ---
Date and Time: 06/08/20 1008 Subjective Assessment: pod 2 pt resting in bed and doing well without complaints eager to go home. pt ambulating and tolerating diet. vss afebrile abd; soft incision c/d/intact uterus; firm lochia; mild ext; no clubbing cyanosis or edema a/p sp csection pod 2 pt stable for discharge should fu in office in 2 wks OBJECTIVE DATA Vital Signs: Vital Signs - 24 hr Temp Pulse Resp BP Pulse Ox 06/08/20 08:00 97.5 F 100 H 18 112/64 94 L 06/08/20 02:00 98.2 F 92 H 18 103/59 91 L 06/07/20 20:00 97.8 F 96 H 20 118/59 95 06/07/20 14:00 97.5 F 109 H 18 119/68 95 Pain Assessment - Last Documented Pain Intensity [Lower Medial] 7 Pain Intensity 3 Pain Scale Used 0-10 Pain Scale Intake and Output: Intake & Output 06/05/20 06/06/20 06/07/20 06/08/20 11:59 11:59 11:59 11:59 Intake Total 4140 950 Output Total 1650 Balance 2490 950 Weight 88.904 kg
--- NOTE | 2020-06-08 10:12 | PCM.DS ---
Discharge Summary Date of Admission: 06/06/20 03:40 Date of Discharge: 06/08/20 Admitting Physician: DEBBIE MCBRIDE DO Consults: Consults on Case 06/06/20 04:21 Notify Physician OF ADMISSION 06/06/20 04:29 Notify Anesthesia Provider PRN Primary Care Provider: DEBBIE MCBRIDE DO Allergies Allergies amoxicillin [From Augmentin] Allergy (Verified 06/06/20 05:03) PT STATES THAT SHE CAN TAKE AMOXICILLIN BUT NOT AUGMENTIN clavulanic acid [From Augmentin] Allergy (Verified 06/06/20 05:03) PT STATES THAT SHE CAN TAKE AMOXICILLIN BUT NOT AUGMENTIN Hospital Summary - Hospital Course Hospital Course: pt admitted on jun 06 for primary csection for breech presentation and was done so without complication delivering live baby girl at 0738. during postop period pt did very well and had stable h/h prior to being discharged today. pt was given rx for norco and ibuprofen for pain management and was instructed to fu in office in 2 wks for postop incision check. all questions answered to her satisfaction. - Vitals & Intake/Output Vital Signs: Vital Signs Temperature 97.5 F 06/08/20 08:00 Pulse Rate 100 H 06/08/20 08:00 Respiratory Rate 18 06/08/20 08:00 Blood Pressure 112/64 06/08/20 08:00 O2 Sat by Pulse Oximetry 94 L 06/08/20 08:00 Intake & Output: Intake & Output 06/05/20 06/06/20 06/07/20 06/08/20 11:59 11:59 11:59 11:59 Intake Total 4140 950 Output Total 1650 Balance 2490 950 Weight 88.904 kg - Lab Result Diagrams: 06/07/20 05:15 Micro Results-Entire Visit: Microbiology 06/06/20 07:20 Urine Culture - Preliminary Urine, Catheterized NO GROWTH TO DATE - Procedures and Test Procedures and Tests throughout Hospitalization: Therapy Orders & Screens 06/06/20 10:26 Standby STAT Comment: Diagnosis: PRIMARY C SECTION - Discharge Disposition: Home, Self-Care Condition: Stable Prescriptions: No Action Vits W-Ca,Fe,FA(<1Mg) [] 1 tab PO DAILY Follow up with: DEBBIE MCBRIDE DO [Primary Care Provider] - Call for Appointment (should fu in 2 wks for postop incision check) Forms: OB Discharge Instructions
--- NOTE | 2020-06-09 12:22 | OP ---
SURGERY DATE/TIME: 06/06/2020 0713 PREOPERATIVE DIAGNOSIS: Intrauterine at 39 weeks gestation with breech presentation. POSTOPERATIVE DIAGNOSIS: Intrauterine at 39 weeks gestation with breech presentation. PROCEDURE: Primary section with low flap transverse uterine incision, Pfannenstiel skin incision. SURGEON: Martínez Pfeiffer D.O. MATERIALS ASSISTANT: Lorene Nguyen, home appliance tech. ANESTHESIA: Spinal. ESTIMATED BLOOD LOSS: 200 cc. COMPLICATIONS: None. INDICATIONS: The risks, benefits, indications and alternatives of the procedure were reviewed with the patient prior to procedure. The patient understood the risk of infection, bleeding, bowel injury, bladder injury, ureteral injury, pelvic infection, thromboembolic disorder that may be associated with this procedure however desires to have this procedure as a possible need to alleviate her current medical condition. DESCRIPTION OF PROCEDURE AND FINDINGS: At this point the patient is taken to the operating room where her spinal anesthesia was found to adequate. She was then prepared and draped in the normal sterile fashion in the dorsal supine position with leftward tilt. A Pfannenstiel skin incision is made with a scalpel and then carried through the underlying layer of the fascia with Bovie. The fascia was then incised in the midline and the incision extended laterally with curved Kent scissors. The superior aspect of the fascial incision was then grasped Pretty clamps elevated and the underlying rectus muscles dissected off bluntly. Attention is then turned to the inferior aspect of this incision which in similar fashion was grasped, tented up with Pretty clamps and the rectus muscles dissected off bluntly. The rectus muscles were then at the midline and the peritoneum identified, tented up and entered sharply with Metzenbaum scissors. The peritoneal incision was then extended superiorly and inferiorly with good visualization of the bladder. The bladder blade was then inserted and the vesicouterine peritoneum identified, grasped with a pickup and entered sharply with Metzenbaum scissors. This incision was then extended laterally and bladder flap created digitally. The bladder blade was then re-inserted and the lower uterine segment incised in transverse fashion with a scalpel. The uterine incision was then extended laterally with bandage scissors. The bladder blade was then removed and the 's buttock was then noted and was brought out through the incision where the right lower extremity followed by the left lower extremity followed by the trunk and finally the head was then delivered without issue. The nose and mouth were suctioned with bulb suction and the cord clamped and cut. The infant was then handed off to the awaiting nurses. The placenta was then removed manually. The uterus exteriorized and cleared of all clots and debris. The uterine incision was repaired with 1-0 chromic in a running locked fashion. A second layer of the same suture was used to obtain excellent hemostasis. The uterus is then returned to the abdomen. The gutters were cleared of clots. The peritoneal muscle closed in interrupted fashion using 2-0 chromic suture. The fascia was reapproximated with 0 Vicryl in running fashion. The subcutaneous layer closed with 3-0 chromic suture and the skin was closed with INSORB absorbable elva. The patient tolerated the procedure well. Sponge, lap, needle and instrument counts were correct x2. The patient was then taken to the recovery room in stable condition. The patient delivered a live baby girl at 0738 hours. 's were 8 at 1 minute and 9 at 5 minutes. The weight of the baby was 6 pounds 9 ounces.
== END 2020-06-08 10:40 | disposition home or self-care (01) | DRG 788 ==
LOC: MED SURG 03:40
PROVIDERS: ADMIT Obstetrics & Gynecology; ATTEND Obstetrics & Gynecology
PROC: 10D00Z1 Extraction of Products of Conception, Low, Open Approach (ICD-10-PCS; principal; 2020-06-06)
DX: O32.1XX0 Maternal care for breech presentation, not applicable or unspecified (principal); Z3A.39 39 weeks gestation of pregnancy; Z37.0 Single live birth
CPT/HCPCS: 36415; 59025; 59514; 62322; 64486; 64488; 76937; 76942; 80053; 80307; 81001; 81050; 82570; 84156; 84550; 85025; 85027; 85610; 85730; 86850; 86900; 86901; 87086; 94799; G0378; J0171; J1100; J1885; J2274; J2370; J2405; J2590; J2795; L0625; A9270-GY